=== PATIENT | male | born 1970 | race Caucasian/White ===

== ENCOUNTER 2019-06-22 06:47 | Outpatient (CLI) | payer OTHER, SELFPAY ==
--- NOTE | 2019-07-13 13:48 | SLEEP_ITS ---
Split-night study. DATE OF STUDY: 06/22/2019 ORDERING PHYSICIAN: Michelle Villalta M.D. REASON FOR THE STUDY: Excessive daytime sleepiness, long history of sleep apnea. HISTORY: This patient is a 48-year-old male, 74 inches tall, weighing 292 pounds with a body mass index of 37.5. He has a history of obstructive sleep apnea syndrome from years ago. He has been using a mandibular advancement device for 10 years. It has not been adjusted in many years. He is currently waking with a dry mouth in the morning, urinating 1 or 2 times at night, and he has gained 75 pounds in the last year. He seems to have undertreated sleep apnea and the current mandibular device is not helping any longer. He does have a history of split-night study on January 21, 2006, which showed severe obstructive sleep apnea syndrome with an AHI of 36.1 with moderate oxygen desaturation, heavy snoring, and moderate myoclonus with adequate titration to 10 cm of water pressure. At that time, he weighed 250 pounds and had a body mass index of 28.2. Currently, his weight is 292 pounds with a body mass index of 37.5. His sleep complaints include poor quality sleep. He constantly snores even wearing the device and this is loud enough for others to complain about it. He occasionally awakens at night with belching or coughing. He frequently awakens at night feeling short of breath. He constantly has trouble sleeping with a cold. He frequently gasp for breath at night, has breathing problems witnessed by others and sweats excessively at night. He occasionally notices his heart pounding or beating irregularly at night. He occasionally falls asleep during the day, never involuntarily, or while driving. He does not fall asleep with physical effort. He does have loss of muscle tone with strong emotion. He rarely has daytime difficulties due to excessive sleepiness. He does not feel paralyzed on waking or falling asleep. He rarely has vivid dreamlike scenes upon awakening or falling asleep. He is rarely afraid to go to sleep. He rarely has nightmares and rarely remembers his dreams. He occasionally has racing thoughts, feelings of sadness, depression, and anxiety. He frequently has muscular tension, notices parts of his body jerking, kicks at night, and has crawly achy feelings in his legs. He occasionally has leg pain at night. He does not have morning jaw pain. He rarely grinds his teeth during sleep. Rarely is bothered by pain during the day, rarely has pain during the night. He occasionally wakes up feeling stiff in the morning with sore achy muscles, rarely with pain in the neck and spine. He has memory problems, tremors, depression, and fatigue. He goes to bed at 9 p.m., falling asleep quickly, waking several times at night on average 20-30 minutes and will just rest in bed or go to the bathroom. On the weekends, he goes to bed at 10 p.m. During the week, he wakes at 5 a.m. He estimates that he gets 4-5 hours of sleep on average night. On the weekends, he does wake up at 7 a.m. His social life is blunted due to his inability to stay out. This has affected his libido. He does take naps but a short nap is not refreshing. MEDICAL COMORBIDITIES: Severe obstructive sleep apnea syndrome, mixed hyperlipidemia, depression, anxiety, restless legs syndrome, seasonal allergic rhinitis. An echo on 06/19/2015 showed an LVEF of 60%. Mild enlargement of the left atrium. Normal RV size and function. HABITS: Never smoked tobacco. No caffeine. Two alcoholic beverages per week. DESCRIPTION OF THE STUDY: On the [place] Sleepiness Scale, the score is 12. This study was a split-night study in the lab using the [employer] multiple channel system including EOG, EEG, submental EMG, EKG, nasal and oral airflow using thermisto
== END 2019-06-22 06:48 | disposition home or self-care (01) ==
LOC: ANHCSM 06:47
PROVIDERS: PCP Family Medicine; Visit Provider Internal Medicine Critical Care Medicine
DX: G47.33 Obstructive sleep apnea (adult) (pediatric) (principal)
CPT/HCPCS: 95811

== ENCOUNTER 2020-03-25 22:47 | Emergency (ER) | payer OTHER, SELFPAY ==
[2020-03-25] VITALS (12 sets, daily range): BP systolic 111–133; BP diastolic 79–97; PULSE 67–84; RESP 11–18; TEMP 37; O2SAT 92–97
--- NOTE | 2020-03-25 22:41 | ED.SYNCOPE ---
HPI - Syncope General Chief Complaint: Syncope Stated Complaint: syncope History of Present Illness HPI narrative: Previously healthy 49 yo male brought in by EMS from home for syncope. He reports that he had a mild sore throat yesterday. Today he developed some nausea. Tonight while sitting on the toilet he lost consciousness. He did not fall off the toilet or injury himself. His found him unconscious leaning against the wall. He vomited once prior to being picked up by EMS. He reports that he had a mild temperature elevation of 100. No chest pain, SOB, palpitations. Related Data Home Medications Medication Instructions Recorded Confirmed cholecalciferol (vitamin D3) 50 2,000 unit PO DAILY 04/26/19 10/10/19 mcg (2,000 unit) tablet Allergies Allergy/AdvReac Type Severity Reaction Status Date / Time No Known Allergies Allergy Verified 03/25/20 23:13 Review of Systems Review of Systems: All systems reviewed & are unremarkable except as noted in HPI and below Constitutional: Constitutional: Reports chills Cardiovascular: Cardiovascular: Denies chest pain Respiratory: Respiratory: Denies dyspnea Gastrointestinal: Gastrointestinal: Denies diarrhea, Reports nausea and Reports vomiting Genitourinary: Genitourinary: Denies dysuria Musculoskeletal: Musculoskeletal: Denies back pain Neurologic: Reports syncope PMFSH Past Medical History Medical History (Updated 03/28/20 @ 11:17 by Emery Monet MD) Acute bronchitis Colon cancer screening Encounter for prostate cancer screening Fatigue Family History Family History Mother Hypertension Grandparent Cerebrovascular accident Family history of malignant neoplasm Father Family history of lung cancer, Onset Age: 61 Social History Social History Smoking status: Never smoker Alcohol intake: current Exam Const: General: no acute distress and alert Nutritional Appearance: well nourished Orientation/consciousness: patient oriented x3 HENMT: Head: normal to inspection Resp: Effort & Inspection: normal respiratory effort Auscultation: clear to auscultation bilaterally Cardio: Rate: regular rate Rhythm: regular rhythm GI: Inspection: non-distended Other: Nontender Skin: General skin exam: normal color Neuro: General: patient oriented x3, moves all extremities, no focal motor deficits and CN's II-XI intact bilaterally Speech: normal speech Extrem: General: normal to inspection and no edema Course Vital Signs Vital signs: Vital Signs Temperature 37.0 C 03/25/20 22:44 Pulse Rate 74 03/25/20 22:44 Respiratory Rate 18 03/25/20 22:44 Blood Pressure 133/85 03/25/20 22:44 Pulse Oximetry 95 03/25/20 22:44 Temperature 37.0 C 03/25/20 22:44 Pulse Rate 75 03/26/20 01:17 Respiratory Rate 19 03/26/20 01:17 Blood Pressure 143/82 H 03/26/20 01:17 Pulse Oximetry 97 03/26/20 01:17 MDM - Syncope Differential Diagnosis Differential diagnosis: Likely syncope due to orthostatic hypotension, vasovagal syncope and dehydration Medical Records Attestation: I reviewed the patient's medical records. Lab Data Attestation: I reviewed the patient's lab results. Result diagrams: 03/25/20 23:22 03/25/20 23:22 Labs: Lab Results 03/25/20 03/25/20 Range/Units 23:22 23:22 WBC 4.6 (4.5-10.0) K/mm3 RBC 5.22 (4.6-6.20) M/mm3 Hgb 15.1 (14.0-18.0) g/dL Hct 44.8 (42.0-52.0) % MCV 85.8 (80-100) fl MCH 28.9 (26-34) pg MCHC 33.7 (32-36) g/dl RDW 12.9 (11.5-14.5) % Plt Count 186 (150-375) k/mm3 MPV 8.8 (7.4-10.4) fl Immature Gran % (Auto) 0.4 (0-0.5) % Neut % (Auto) 65.8 (45.5-73.1) % Lymph % (Auto) 21.7 (18.3-44.2) % [place] % (Auto) 11.0 H (2.6-8.5) % Eos % (Auto) 0.2 (0-4.4) % Baso % (Auto)
--- NOTE | 2020-03-25 22:50 | ECG_ITS ---
Measurements Intervals [place] Rate: 71 P: 25 [place]: 161 QRS: 25 QRSD: 100 T: 30 QT: 391 QTc: 426 Interpretive Statements SINUS RHYTHM INCOMPLETE RIGHT BUNDLE BRANCH BLOCK MINIMAL Q WAVES- INFERIOR LEADS BORDERLINE ECG Electronically Signed On 03-26-2020 7:12:01 [employer] by Ronen Cleary D.O.
[2020-03-25] MEDS: SODIUM CHLORIDE 0.9% IV 2,000 ML 999 ML IV CONT (23:10)
[2020-03-25 23:32] LABS: Basophils Percent Auto 0.9 % (0.2-1.2); Eosinophils Percent Auto 0.2 % (0-4.4); Hematocrit 44.8 % (42.0-52.0); Hemoglobin 15.1 g/dL (14.0-18.0); Immature Granulocyte Absolute 0.02 K/mm3 (0.00-0.031); Immature Granulocyte Percent A 0.4 % (0-0.5); Lymphocytes Absolute Auto 0.99 K/mm3 (0.9-3.2); Lymphocytes Percent Auto 21.7 % (18.3-44.2); Mean Corpuscular HGB Conc 33.7 g/dl (32-36); Mean Corpuscular Hemoglobin 28.9 pg (26-34); Mean Corpuscular Volume 85.8 fl (80-100); Mean Platelet Volume 8.8 fl (7.4-10.4); Monocytes Absolute Auto 0.5 K/mm3 (0.1-0.6); Neutrophils Percent Auto 65.8 % (45.5-73.1); Platelet Count Result 186 k/mm3 (150-375); Red Blood Count 5.22 M/mm3 (4.6-6.20); Red Cell Distribution Width 12.9 % (11.5-14.5); White Blood Count 4.6 K/mm3 (4.5-10.0)
[2020-03-25 23:47] LABS: Alanine Aminotransferase 50 U/L (4-50); Albumin Level 3.9 g/dL (3.5-5.1); Alkaline Phosphatase 72 U/L (38-126); Anion Gap 7 mmol/L (8-16); Aspartate Amino Transferase 40 U/L (17-59); Bilirubin,Total 0.4 mg/dL (0.2-1.3); Blood Urea Nitrogen 15 mg/dL (9-20); Calcium 8.7 mg/dL (8.4-10.2); Carbon Dioxide 29 mmol/L (22-30); Chloride 103 mmol/L (98-107); Estimated CRCL calculation 116 ml/min; Estimated Glomerular Filt Rate > 60; Glucose 120 mg/dL (75-110); Lipase 90 U/L (23-300); Potassium 3.7 mmol/L (3.4-5.0); Sodium 139 mmol/L (137-145)
[2020-03-26 00:03] VITALS: PULSE 72; RESP 18; O2SAT 97
[2020-03-26 00:13] VITALS: BP 121/80; PULSE 74; RESP 18; O2SAT 96
[2020-03-26 00:15] VITALS: PULSE 75; RESP 17; O2SAT 97
[2020-03-26 00:31] VITALS: PULSE 75; RESP 17; O2SAT 97
[2020-03-26 01:17] VITALS: BP 143/82; PULSE 75; RESP 19; O2SAT 97
== END 2020-03-26 01:19 | disposition home or self-care (01) ==
PROVIDERS: Emergency Provider Emergency Medicine; PCP Family Medicine
DX: R55 Syncope and collapse (principal); I45.10 Unspecified right bundle-branch block
CPT/HCPCS: 36415; 80053; 83690; 85025; 93005; 96360; 99283; J7030

== ENCOUNTER 2021-03-04 02:14 | Day surgery (SDC) | payer OTHER, SELFPAY ==
[2021-02-18 13:40] VITALS: BMI 37.3
--- NOTE | 2021-03-04 09:35 | P.PNAN_ITS ---
Anes - Initial Pre Proc Eval Procedure: Operation Date: 03/04/21 10:45 Proposed Procedures p Screening Colonoscopy - Fritz Leone MD Date/Time: 03/04/21 09:35 Surgeon: Fritz Leone MD Pre Op Diagnosis: neoplasm screening Patient Data Age: 50 Gender: M Height: 1.88 m Weight: 131.8 kg Allergies Allergy/AdvReac Type Severity Reaction Status Date / Time No Known Allergies Allergy Verified 03/04/21 09:39 Home Medications Medication Instructions Recorded Confirmed Type cholecalciferol (vitamin D3) 50 2,000 unit PO DAILY 04/26/19 03/04/21 History mcg (2,000 unit) tablet atorvastatin 40 mg tablet 40 mg PO DAILY #90 tablet 09/21/20 03/04/21 Rx escitalopram oxalate 10 mg tablet 10 mg PO DAILY #90 tablet 10/31/20 03/04/21 Rx Patient hx anesthesia problems: none Family hx anesthesia problems: none Results Review: All pre-operative results and documents have been reviewed as part of the pre-operative evaluation. [facility] Past Medical History Medical History (Updated 03/04/21 @ 09:36 by Edis Cole MD) Acute bronchitis BMI 39.0-39.9,adult BMI 40.0-44.9, adult Body mass index (bmi) 38.0-38.9, adult (10/14/18) Chronic anxiety Chronic depression Chronic left shoulder pain Colon cancer screening COVID-19 (~03/24/20) De Quervain's tenosynovitis, right (~07/2020) treated surgically 08/31/2020 Encounter for prostate cancer screening Fatigue Mixed hyperlipidemia Obstructive sleep apnea Right knee pain Seborrhea (10/31/20) Family History Family History Mother Hypertension Grandparent Cerebrovascular accident Family history of malignant neoplasm Father Family history of lung cancer, Onset Age: 61 Social History Social History Smoking status: Never smoker Alcohol intake: current Drinks per week: 2 Substance use: never Substance use type: does not use Living arrangements: with family Spiritual care concerns: No Anes - Eval Final PreProcedure Day of Procedure 03/04/21 09:35 Patient weight: obese Heart: regular rate and rhythm Lungs: clear to auscultation and normal air movement Airway: Mallampati scale class II Neurological: alert and oriented Last oral intake: >/= 8 hours ASA classification: III Emergent: no Anesthetic plan: proceed Anesthesia type and monitoring: general GIVS Results Review: All pre-operative results and documents have been reviewed as part of the pre-operative evaluation. Informed Consent: The patient's anesthetic plan and its attendant risks and benefits were discussed with the patient/family/POA. Questions were solicited and answers provided to the satisfaction of the patient/family/POA.
[2021-03-04 09:40] VITALS: BP 135/84; PULSE 76; RESP 20; TEMP 35.5; O2SAT 99
[2021-03-04] MEDS: LACTATED RINGERS 1,000 ML 150 ML IV CONT (09:42)
--- NOTE | 2021-03-04 10:23 | PM.HPGS ---
History of Present Illness History of Present Illness Consent: Risks, benefits, and alternatives have been discussed and questions answered. Patient agrees to proceed with procedure. Chief complaint: neoplasm screening Narrative: Cristiano Avila is a 50 year old male here for first screening colonoscopy Review of Systems Constitutional: Constitutional: Denies headache(s) and Denies weakness Eyes: Eyes: Denies blurry vision ENT: Reports Normal hearing present, Denies headache(s) and Denies neck pain Cardiovascular: Cardiovascular: Denies chest pain and Denies dyspnea Respiratory: Respiratory: Denies dyspnea Gastrointestinal: Gastrointestinal: Reports no additional gastrointestinal complaints Genitourinary: Genitourinary: Denies dysuria Musculoskeletal: Musculoskeletal: Denies neck pain Integumentary/Breasts: Skin/Breast: Denies dry skin Neurologic: Reports Normal hearing present, Denies headache(s) and Denies weakness Psychiatric: Psychiatric: Denies anxiety Endocrine: Endocrine: Denies change in body appearance Hematologic/Lymphatic: Hematologic/Lymphatic: Denies easy bleeding Allergic/Immunologic: Allergic/Immunologic: Denies urticaria PMFSH Past Medical History Medical History (Updated 03/04/21 @ 09:36 by Edis Cole MD) Acute bronchitis BMI 39.0-39.9,adult BMI 40.0-44.9, adult Body mass index (bmi) 38.0-38.9, adult (10/14/18) Chronic anxiety Chronic depression Chronic left shoulder pain Colon cancer screening COVID-19 (~03/24/20) De Quervain's tenosynovitis, right (~07/2020) treated surgically 08/31/2020 Encounter for prostate cancer screening Fatigue Mixed hyperlipidemia Obstructive sleep apnea Right knee pain Seborrhea (10/31/20) Family History Family History Mother Hypertension Grandparent Cerebrovascular accident Family history of malignant neoplasm Father Family history of lung cancer, Onset Age: 61 Social History Social History Smoking status: Never smoker Alcohol intake: current Drinks per week: 2 Substance use: never Substance use type: does not use Living arrangements: with family Spiritual care concerns: No Meds Home Medications and Allergies Home Medications Medication Instructions Recorded Confirmed Type cholecalciferol (vitamin D3) 50 2,000 unit PO DAILY 04/26/19 03/04/21 History mcg (2,000 unit) tablet atorvastatin 40 mg tablet 40 mg PO DAILY #90 tablet 09/21/20 03/04/21 Rx escitalopram oxalate 10 mg tablet 10 mg PO DAILY #90 tablet 10/31/20 03/04/21 Rx Allergies Allergy/AdvReac Type Severity Reaction Status Date / Time No Known Allergies Allergy Verified 03/04/21 09:39 Vital Signs Vital Signs - 24 hr 03/04/21 09:40 Temperature 95.9 F L Pulse Rate 76 Respiratory Rate 20 Blood Pressure 135/84 Pulse Oximetry 99 Exam Const: General: comfortable and no acute distress HENMT: General nose exam: Normal nares present Eyes: General: appearance normal, both eyes and all related structures Neck: Neck: no JVD Resp: Auscultation: clear to auscultation bilaterally Cardio: Rate: regular rate Rhythm: regular rhythm GI: Inspection: non-distended GI Palp: Yes Soft to palpation Skin: General skin exam: normal color Neuro: General: gait normal Speech: normal speech Extrem: General: normal to inspection Psych: Mental Status: mental status grossly normal Assessment and Plan Assessment and plan (1) Colon cancer screening: Code(s): Z12.11 - Encounter for screening for malignant neoplasm of colon Status: Acute Assessment and Plan: colonoscopy
[2021-03-04 10:54] VITALS: BP 124/84; PULSE 82; RESP 16; O2SAT 98
[2021-03-04 11:04] VITALS: BP 121/95; PULSE 68; RESP 18; O2SAT 98
[2021-03-04 11:14] VITALS: BP 120/82; PULSE 70; RESP 20; O2SAT 99
== END 2021-03-04 11:24 | disposition home or self-care (01) ==
PROVIDERS: PCP Family Medicine; Visit Provider Internal Medicine Gastroenterology
PROC: 0DJD8ZZ Inspection of Lower Intestinal Tract, Via Natural or Artificial Opening Endoscopic (ICD-10-PCS; CPT 45378; principal; 2021-03-04 10:45)
DX: Z12.11 Encounter for screening for malignant neoplasm of colon (principal); K64.8 Other hemorrhoids; D12.4 Benign neoplasm of descending colon; D12.5 Benign neoplasm of sigmoid colon; D12.3 Benign neoplasm of transverse colon; K63.5 Polyp of colon; F41.8 Other specified anxiety disorders; M65.4 Radial styloid tenosynovitis [de Quervain]; R53.83 Other fatigue; E78.2 Mixed hyperlipidemia; G47.33 Obstructive sleep apnea (adult) (pediatric); L21.9 Seborrheic dermatitis, unspecified; E66.9 Obesity, unspecified; Z68.37 Body mass index [BMI] 37.0-37.9, adult
CPT/HCPCS: 45385; 88305; J2001; J2704; J7120

== ENCOUNTER 2022-12-15 09:56 | Outpatient (CLI) | payer OTHER, SELFPAY ==
--- NOTE | 2022-12-15 10:05 | EST_ITS ---
Patient Info Name: Cristiano Avila Age: 52 years : 1970 Gender: Male Ht: 74 in Wt: 295 lbs BSA: 2.69 m2 Exam Date: 12/15/2022 10:19 AM Exam Location: [facility] Patient Status: Outpatient Admit Date: 12/15/2022 Staff Ordering Physician: Emery Monet MD Attending Provider: Emery Monet MD Exercise Technologist: Carmina Dorado CT Exercise Physician: Ronen Cleary DO Exam Type: CA stress test treadmill Study Info Indications R06.09 - Other forms of dyspnea A treadmill exercise stress test was performed. Summary 1. 1. Negative [place] exercise stress test for ischemic ST changes by ECG criteria. 2. 2. Good functional capacity, achieving 12 METs of workload. 3. 3. Hypertensive response to exercise. 4. 4. Appropriate HR response to exercise. 5. 5. Appropriate HR recovery at 1 minute post exercise. 6. 6. No imaging with stress testing. 7. 7. Patient informed of the above results. Protocol: [facility] ECG Details Stage: REST Duration (min): 1 min : 7 sec Speed (mph): 0.0 Grade (%): 0 HR (bpm): 65 SBP (mmHg): 136 DBP (mmHg): 70 METS: --- Stage: REST Duration (min): 19 min : 31 sec Speed (mph): 0.0 Grade (%): 0 HR (bpm): 65 SBP (mmHg): 136 DBP (mmHg): 70 METS: --- Stage: STAGE 1 Duration (min): 1 min : 0 sec Speed (mph): 1.7 Grade (%): 10 HR (bpm): 100 SBP (mmHg): 136 DBP (mmHg): 70 METS: --- Stage: STAGE 1 Duration (min): 2 min : 0 sec Speed (mph): 1.7 Grade (%): 10 HR (bpm): 111 SBP (mmHg): 136 DBP (mmHg): 70 METS: --- Stage: STAGE 1 Duration (min): 3 min : 0 sec Speed (mph): 1.7 Grade (%): 10 HR (bpm): 114 SBP (mmHg): 136 DBP (mmHg): 70 METS: --- Stage: STAGE 2 Duration (min): 1 min : 0 sec Speed (mph): 2.5 Grade (%): 12 HR (bpm): 119 SBP (mmHg): 131 DBP (mmHg): 60 METS: --- Stage: STAGE 2 Duration (min): 2 min : 0 sec Speed (mph): 2.5 Grade (%): 12 HR (bpm): 124 SBP (mmHg): 150 DBP (mmHg): 50 METS: --- Stage: STAGE 2 Duration (min): 3 min : 0 sec Speed (mph): 2.5 Grade (%): 12 HR (bpm): 127 SBP (mmHg): 150 DBP (mmHg): 50 METS: --- Stage: STAGE 3 Duration (min): 1 min : 0 sec Speed (mph): 3.4 Grade (%): 14 HR (bpm): 132 SBP (mmHg): 172 DBP (mmHg): 52 METS: --- Stage: STAGE 3 Duration (min): 2 min : 0 sec Speed (mph): 3.4 Grade (%): 14 HR (bpm): 137 SBP (mmHg): 172 DBP (mmHg): 52 METS: --- Stage: STAGE 3 Duration (min): 3 min : 0 sec Speed (mph): 3.4 Grade (%): 14 HR (bpm): 141 SBP (mmHg): 206 DBP (mmHg): 63 METS: --- Stage: STAGE 4 Duration (min): 1 min : 0 sec Speed (mph): 4.2 Grade (%): 16 HR (bpm): 153 SBP (mmHg): 206 DBP (mmHg): 63 METS: --- Stage: STAGE 4 Duration (min): 1 min : 0 sec Speed (mph): 4.2 Grade (%): 16 HR (bpm): 153 SBP (mmHg): 206 DBP (mmHg): 63 METS: ---
== END 2022-12-15 09:57 | disposition home or self-care (01) ==
PROVIDERS: PCP Family Medicine; Visit Provider Family Medicine
DX: R06.09 Other forms of dyspnea (principal)
CPT/HCPCS: 93017

== ENCOUNTER 2024-02-16 02:08 | Day surgery (SDC) | payer OTHER, SELFPAY ==
[2024-02-03 14:32] VITALS: BMI 36.8
[2024-02-16 09:20] VITALS: BP 125/94; PULSE 66; RESP 20; TEMP 35.8; O2SAT 98; BMI 37.3
[2024-02-16 09:37] LABS: Glucose Point of Care 95 mg/dl (65-105)
[2024-02-16] MEDS: LACTATED RINGERS 1,000 ML 150 ML IV CONT (09:42)
--- NOTE | 2024-02-16 10:24 | WPDANESEPPF ---
Anes - Initial Pre Proc Eval Procedure: Operation Date: 02/16/24 11:00 Proposed Procedures p Colonoscopy - Fritz Leone MD Date/Time: 02/16/24 10:24 Surgeon: Fritz Leone MD Pre Op Diagnosis: Pers. hx. colon polyp Patient Data Age: 53 Gender: M Height: 1.88 m Weight: 132.1 kg Last Vital Signs Temp 35.8 C L 02/16/24 09:20 Pulse 66 02/16/24 09:20 Resp 20 02/16/24 09:20 BP 125/94 H 02/16/24 09:20 Pulse Ox 98 02/16/24 09:20 O2 Del Method Room Air 02/16/24 09:20 Allergies Allergy/AdvReac Type Severity Reaction Status Date / Time No Known Allergies Allergy Verified 02/03/24 14:30 Home Medications Medication Instructions Recorded Confirmed Type cholecalciferol (vitamin D3) 50 2,000 unit PO DAILY 04/26/19 02/16/24 History mcg (2,000 unit) tablet atorvastatin 40 mg tablet 40 mg PO DAILY #90 tabs 05/27/23 02/16/24 Rx escitalopram oxalate 10 mg tablet 10 mg PO DAILY #90 tabs 05/27/23 02/16/24 Rx (Lexapro) semaglutide 0.25 mg or 0.5 mg (2 0.25 mg subcut WEEKLY 02/03/24 02/16/24 History mg/3 mL) subcutaneous pen injector (Ozempic) Laboratory Tests 02/16/24 09:35 POC Capillary Glucose 95 mg/dl (65-105) Patient hx anesthesia problems: none Family hx anesthesia problems: none Results Review: All pre-operative results and documents have been reviewed as part of the pre-operative evaluation. [facility] Past Medical History Medical History Acute bronchitis BMI 37.0-37.9, adult BMI 39.0-39.9,adult BMI 40.0-44.9, adult Body mass index (bmi) 38.0-38.9, adult (10/14/18) Chronic anxiety Chronic depression Chronic left shoulder pain Colon cancer screening he multiple colon polyps on 03/04/2021 COVID-19 (~03/24/20) De Quervain's tenosynovitis, right (~07/2020) treated surgically 08/31/2020 Dyspnea on exertion Exercise stress test on 12/15/2022 was negative for ischemia. Elevated fasting glucose (11/24/23) fasting glucose 100 on 11/24/2023. Encounter for prostate cancer screening PSA 1.2 on 11/04/2022. PSA 1.3 on 11/24/2023. Encounter for wellness examination in adult Excessive cerumen in left ear canal Exposure to silica Fatigue TSH 3.93 with hemoglobin 15.9 and glucose 92 on 11/04/2022. Left-sided thoracic back pain (~02/2022) left lower thoracic back pain related to posture Mixed hyperlipidemia Total cholesterol 187, triglycerides 108, HDL 56, LDL 112 on 11/04/2022. cholesterol 180, triglycerides 125, HDL 48, LDL 110 on 11/24/2023. Morbid obesity with BMI of 40.0-44.9, adult Obesity (BMI 30-39.9) Obstructive sleep apnea CPAP at 11 cm of water pressure Otitis media Pedunculated colonic polyp (03/04/21) 12 mm pedunculated sigmoid polyp with 3 other smaller polyps on colonoscopy 03/04/2021. recheck in 3 years Right knee pain Seborrhea (10/31/20) Shortness of breath on exertion Family History Family History Mother Hypertension Grandparent Cerebrovascular accident Family history of malignant neoplasm Father Family history of lung cancer, Onset Age: 61 Social History Social History Smoking status: Never smoker Alcohol intake: current Alcohol use details: COUPLE A MONTH Substance use: never Substance use type: does not use Lack of Transportation: No Lack of Food: Never True Current Housing: I Have Housing Concerned About Future Housing: No Difficulty Paying Gas/Electric Bills: No Difficulty Paying for Meds: No Currently Unemployed: No Education: Master's Degree or Higher Difficulty w/ Childcare or Family Care: No Living arrangements: with family Spiritual care concerns: No Anes - Eval Final PreProcedure Day of Procedure 02/16/24 10:24 Patient weight: obese Heart: regular rate and rhythm Lungs: clear to auscultation Airway: Mallampati scale class II Neurological: alert and oriented Last oral intake: >/= 8 hours ASA classification: III Emergent: no Anesthetic plan: proceed Anesthesia type and monitoring: general GIVS Results Review: All pre-operative results and documents have been reviewed as part of the pre-operative evaluation. Informed Consent: The patient's anesthetic plan and its attendant risks and benefits were discussed with the patient/family/POA. Questions were solicited and answers provided to the satisfaction of the patient/family/POA.
--- NOTE | 2024-02-16 10:25 | PM.HPGS ---
History of Present Illness History of Present Illness Consent: Risks, benefits, and alternatives have been discussed and questions answered. Patient agrees to proceed with procedure. Chief complaint: Pers. hx. colon polyp Narrative: Cristiano Avila is a 53 year old male with colon polyps in 2020 Review of Systems Review of Systems: All systems reviewed & are unremarkable except as noted in HPI and below PMFSH Past Medical History Medical History Acute bronchitis BMI 37.0-37.9, adult BMI 39.0-39.9,adult BMI 40.0-44.9, adult Body mass index (bmi) 38.0-38.9, adult (10/14/18) Chronic anxiety Chronic depression Chronic left shoulder pain Colon cancer screening he multiple colon polyps on 03/04/2021 COVID-19 (~03/24/20) De Quervain's tenosynovitis, right (~07/2020) treated surgically 08/31/2020 Dyspnea on exertion Exercise stress test on 12/15/2022 was negative for ischemia. Elevated fasting glucose (11/24/23) fasting glucose 100 on 11/24/2023. Encounter for prostate cancer screening PSA 1.2 on 11/04/2022. PSA 1.3 on 11/24/2023. Encounter for wellness examination in adult Excessive cerumen in left ear canal Exposure to silica Fatigue TSH 3.93 with hemoglobin 15.9 and glucose 92 on 11/04/2022. Left-sided thoracic back pain (~02/2022) left lower thoracic back pain related to posture Mixed hyperlipidemia Total cholesterol 187, triglycerides 108, HDL 56, LDL 112 on 11/04/2022. cholesterol 180, triglycerides 125, HDL 48, LDL 110 on 11/24/2023. Morbid obesity with BMI of 40.0-44.9, adult Obesity (BMI 30-39.9) Obstructive sleep apnea CPAP at 11 cm of water pressure Otitis media Pedunculated colonic polyp (03/04/21) 12 mm pedunculated sigmoid polyp with 3 other smaller polyps on colonoscopy 03/04/2021. recheck in 3 years Right knee pain Seborrhea (10/31/20) Shortness of breath on exertion Family History Family History Mother Hypertension Grandparent Cerebrovascular accident Family history of malignant neoplasm Father Family history of lung cancer, Onset Age: 61 Social History Social History Smoking status: Never smoker Alcohol intake: current Alcohol use details: COUPLE A MONTH Substance use: never Substance use type: does not use Lack of Transportation: No Lack of Food: Never True Current Housing: I Have Housing Concerned About Future Housing: No Difficulty Paying Gas/Electric Bills: No Difficulty Paying for Meds: No Currently Unemployed: No Education: Master's Degree or Higher Difficulty w/ Childcare or Family Care: No Living arrangements: with family Spiritual care concerns: No Meds Home Medications and Allergies Home Medications Medication Instructions Recorded Confirmed Type cholecalciferol (vitamin D3) 50 2,000 unit PO DAILY 04/26/19 02/16/24 History mcg (2,000 unit) tablet atorvastatin 40 mg tablet 40 mg PO DAILY #90 tabs 05/27/23 02/16/24 Rx escitalopram oxalate 10 mg tablet 10 mg PO DAILY #90 tabs 05/27/23 02/16/24 Rx (Lexapro) semaglutide 0.25 mg or 0.5 mg (2 0.25 mg subcut WEEKLY 02/03/24 02/16/24 History mg/3 mL) subcutaneous pen injector (Ozempic) Allergies Allergy/AdvReac Type Severity Reaction Status Date / Time No Known Allergies Allergy Verified 02/03/24 14:30 Vital Signs Vital Signs - 24 hr 02/16/24 09:20 Temperature 96.5 F L Pulse Rate 66 Respiratory Rate 20 Blood Pressure 125/94 H Pulse Oximetry 98 Oxygen Delivery Room Air Exam Const: General: comfortable and no acute distress HENMT: Face/Nose/Sinus: Normal nares present Eyes: General: appearance normal, both eyes and all related structures Neck: Neck: no JVD Resp: Auscultation: clear to auscultation bilaterally Cardio: Rate: regular rate Rhythm: regular rhythm GI: Inspection: non-distended GI Palp: Yes Soft to palpation Skin: General skin exam: normal color Neuro: General: gait normal Speech: normal speech Extrem: General: normal to inspection Psych: Mental Status: mental status grossly normal Assessment and Plan Assessment and plan (1) Pedunculated colonic polyp: Onset Date: 03/04/21 Code(s): Phong63.5 - Polyp of colon Status: Acute Assessment and Plan: colonoscopy
[2024-02-16 10:42] VITALS: BP 124/102; PULSE 71; RESP 25; O2SAT 95
[2024-02-16 10:52] VITALS: BP 108/76; PULSE 78; RESP 29; O2SAT 96
[2024-02-16 11:02] VITALS: BP 132/88; PULSE 67; RESP 16; O2SAT 98
== END 2024-02-16 11:07 | disposition home or self-care (01) ==
PROVIDERS: PCP Family Medicine; Referring Provider Family Medicine; Visit Provider Internal Medicine Gastroenterology
PROC: 0DJD8ZZ Inspection of Lower Intestinal Tract, Via Natural or Artificial Opening Endoscopic (ICD-10-PCS; CPT 45378; principal; 2024-02-16 11:00)
DX: Z12.11 Encounter for screening for malignant neoplasm of colon (principal); K63.5 Polyp of colon; E78.2 Mixed hyperlipidemia; G47.33 Obstructive sleep apnea (adult) (pediatric); F41.9 Anxiety disorder, unspecified; F32.A Depression, unspecified; G89.29 Other chronic pain; M25.512 Pain in left shoulder; E66.9 Obesity, unspecified; Z68.37 Body mass index [BMI] 37.0-37.9, adult; Z79.85 Long-term (current) use of injectable non-insulin antidiabetic drugs; Z99.89 Dependence on other enabling machines and devices; Z98.890 Other specified postprocedural states; Z86.0100 Personal history of colon polyps, unspecified; Z80.1 Family history of malignant neoplasm of trachea, bronchus and lung; Z82.49 Family history of ischemic heart disease and other diseases of the circulatory system
CPT/HCPCS: 45385; 82948; 88305; J2704; J7120